=== PATIENT | male | born 1990 | race Caucasian/White ===

== ENCOUNTER 2016-12-19 22:41 | Inpatient (IN) | payer MEDICAID ==
--- NOTE | 2016-12-19 22:57 | EDPHY ---
H & P Stated Complaint: RIGHT SIDE CHEST REDNESS AND SWELLING HX OF CHEST RECONSTRUCTION SURGERY HPI/ROS: HPI CHIEF COMPLAINT: Right-sided chest pain, redness, warmth HISTORY OF PRESENT ILLNESS: This patient is a very pleasant 26 year old transgender male female to male, presents emergency room with tenderness to the right areolar region and right breast with warmth and redness. He tells me this all the signs started approximately an hour ago after got out of the shower. He complains that it is tender and it radiates underneath his axillary and a little bit down his right arm. He is concerned he may have an infection. He had breast augmentation 9 years ago. denies fever. Past Medical History: No significant medical history except for transgender female to male, takes testosterone supplement Past Surgical History: breast augmentation Social History: Denies drug use, alcohol, tobacco works as a massage therapist Family History: Noncontributory ROS REVIEW OF SYSTEMS: A comprehensive 10 point review of systems is otherwise negative aside from elements mentioned in the history of present illness. Exam Constitutional triage nursing summary reviewed, vital signs reviewed, awake/ alert. Eyes normal conjunctivae and sclera, EOMI, PERRLA. HENT normal inspection, atraumatic, moist mucus membranes, no epistaxis, neck supple/ no meningismus, no raccoon eyes. Respiratory clear to auscultation bilaterally, normal breath sounds, no respiratory distress, no wheezing. Cardiovascular chest wall: Right chest wall there is erythema present the Abdifatah a of the right breast appear swollen and tender there is cellulitis present, minimal, no abscess no fluctuance no crepitus, minimally tender, no reactive lymphadenopathy at this time, rate normal, regular rhythm, no murmur, no edema, distal pulses normal. Gastrointestinal soft, non-tender, no rebound, no guarding, normal bowel sounds, no distension, no pulsatile mass. Genitourinary no CVA tenderness. Musculoskeletal no midline vertebral tenderness, full range of motion, no calf swelling, no tenderness of extremities, no meningismus, good pulses, neurovascularly intact. Skin pink, warm, & dry, no rash, skin atraumatic. Neurologic awake, alert and oriented x 3, AAOx3, moves all 4 extremities equally, motor intact, sensory intact, CN II-XII intact, normal cerebellar, normal vision, normal speech. Psychiatric normal mood/affect. Heme/Lymph/Immune no lymphadenopathy. Differential Diagnosis: This patient will have an IV established will obtain blood work will obtain blood cultures, patient be given a dose of vancomycin will check ESR CRP white count electrolytes. Medical Decision Making: Includes but is not limited to in a particular order, right chest breast abscess, right chest breath cellulitis, chest wall cellulitis Re-evaluation: 0124: I did re-evaluate this patient this time I have outlined his large area of redness and cellulitis of his right chest and Areola/nipple. There is no crepitus on exam however is exquisitely tender, warm, and he has tenderness palpation axillary lymphadenopathy. His blood work is reassuring I did give him a dose of IV vancomycin here blood cultures have been pulled. I am going to admit to the Hospalist overnight for right chest wall cellulitis. Reason for admission is large area of cellulitis outlined on the chest, also how quickly this erupted and spread. At this time is hemodynamically stable no evidence of sepsis. 0200: I did update this patient he understands he will be admitted to the hospital. I have ordered this patient IV vancomycin. I spoke with the hospitalist service Dr. Hussein who accepts hospital admission. Ultrasound of the Right chest. The results of the study are negative for fluid collection or large abscess I discussed the results of this study with the radiologist Dr. Rich Source: Patient - Personal History Current Tetanus/Diphtheria Vaccine: Yes Current Tetanus Diphtheria and Acellular Pertussis (TDAP): Yes - Medical/Surgical History Hx Asthma: Yes Hx Chronic Respiratory Disease: No Hx Diabetes: No Hx Cardiac Disease: No Hx Renal Disease: No Hx Cirrhosis: No Hx Alcoholism: No Hx HIV/AIDS: No Hx Splenectomy or Spleen Trauma: No Other PMH: 1.CONCUSSION. 2.HIGH CHOL. 3. TRANSGENDER. 4. TOTAL HYSTERECTOMY - Social History Smoking Status: Never smoked Constitutional: Initial Vital Signs Temperature (C) 37.3 C 12/19/16 22:44 Heart Rate 82 12/19/16 22:44 Respiratory Rate 18 12/19/16 22:44 Blood Pressure 133/72 H 12/19/16 22:44 O2 Sat (%) 99 12/19/16 22:44 O2 Delivery Mode Room Air Allergies/Adverse Reactions: amoxicillin Allergy (Verified 12/19/16 22:46) Penicillins Allergy (Verified 12/19/16 22:46) Home Medications: Medication Instructions Recorded Albuterol 08/16/16 Kava Root Extract 08/16/16 TESTOSTERONE 08/16/16 Medical Decision Making - Data Points Laboratory Results: Laboratory Results 12/19/16 23:15 12/19/16 23:15 12/19/16 23:15 WBC 11.58 H 10^3/uL (3.80-9.50) RBC 5.48 10^6/uL (4.40-6.38) Hgb 16.1 g/dL (13.7-17.5) Hct 47.4 % (40.0-51.0) MCV 86.5 fL (81.5-99.8) MCH 29.4 pg (27.9-34.1) MCHC 34.0 g/dL (32.4-36.7) RDW 13.4 % (11.5-15.2) Plt Count 234 10^3/uL (150-400) MPV 9.3 fL (8.7-11.7) Neut % (Auto) 73.6 % (39.3-74.2) Lymph % (Auto) 17.2 % (15.0-45.0) Eddy % (Auto) 8.1 % (4.5-13.0) Eos % (Auto) 0.3 L % (0.6-7.6) Baso % (Auto) 0.5 % (0.3-1.7) Nucleat RBC Rel Count 0.0 % (0.0-0.2) Absolute Neuts (auto) 8.52 H 10^3/uL (1.70-6.50) Absolute Lymphs (auto) 1.99 10^3/uL (1.00-3.00) Absolute Monos (auto) 0.94 H 10^3/uL (0.30-0.80) Absolute Eos (auto) 0.04 10^3/uL (0.03-0.40) Absolute Basos (auto) 0.06 10^3/uL (0.02-0.10) Absolute Nucleated RBC 0.00 10^3/uL (0-0.01) Immature Gran % 0.3 % (0.0-1.1) Immature Gran # 0.03 10^3/uL (0.00-0.10) ESR 1 MM/HR (0-15) Sodium 140 mEq/L (134-144) Potassium 3.9 mEq/L (3.5-5.2) Chloride 101 mEq/L (97-110) Carbon Dioxide 27 mEq/l (22-31) Anion Gap 12 mEq/L (8-16) BUN 17 mg/dL (7-23) Creatinine 1.0 mg/dL (0.7-1.3) Estimated GFR > 60 Glucose 96 mg/dL (70-100) Calcium 9.6 mg/dL (8.5-10.4) C-Reactive Protein 6.4 mg/L (<10.0) Medications Given: Discontinued Medications Sodium Chloride (Ns) 1,000 mls @ 0 mls/hr IV ONCE ONE PRN Reason: Wide Open Stop: 12/19/16 23:04 Last Admin: 12/19/16 23:20 Dose: 1,000 mls Vancomycin/Sodium Chloride (Vancomycin 1 Gm (Premix)) 250 mls @ 250 mls/hr IV EDNOW ONE PRN Reason: Protocol Stop: 12/20/16 00:02 Last Admin: 12/19/16 23:40 Dose: 250 mls Departure - Departure Disposition: [facility] Inpatient Acute Clinical Impression: Cellulitis of chest wall, Cellulitis of breast Condition: Fair Referrals: IN STATE,. [Primary Care Provider] - As per Instructions
[2016-12-19] MEDS ORDERED: VANCOMYCIN HCL/NORMAL SALINE 250 ML IV ONE (23:03)
[2016-12-19] MEDS ORDERED: NS 1,000 ML IV ONE (23:03)
[2016-12-19 23:23] LABS: % IMMATURE GRANULYOCYTES 0.3 % (0.0-1.1); ABSOLUTE IMMATURE GRANULOCYTES 0.03 10^3/uL (0.00-0.10); ADD DIFF? NO; ADD MORPH? NO; ADD SCAN? NO; ATYPICAL LYMPHOCYTE FLAG 0 (0-99); FRAGMENT RBC FLAG 0 (0-99); HEMATOCRIT 47.4 % (40.0-51.0); HEMOGLOBIN 16.1 g/dL (13.7-17.5); LEFT SHIFT FLG 0 (0-99); LIPEMIA HEMOLYSIS FLAG 90 (0-99); MEAN CELL HEMOGLOBIN 29.4 pg (27.9-34.1); MEAN CELL VOLUME 86.5 fL (81.5-99.8); MEAN PLATELET VOLUME 9.3 fL (8.7-11.7); PLATELET CLUMPS FLAG 0 (0-99); PLATELET COUNT 234 10^3/uL (150-400); RED BLOOD CELL COUNT 5.48 10^6/uL (4.40-6.38); RED CELL DISTRIBUTION WIDTH 13.4 % (11.5-15.2)
[2016-12-19 23:33] LABS: SEDIMENTATION RATE 1 MM/HR (0-15)
[2016-12-19 23:37] LABS: ANION GAP 12 mEq/L (8-16); C-REACTIVE PROTEIN 6.4 mg/L (<10.0); CALCIUM 9.6 mg/dL (8.5-10.4); CARBON DIOXIDE 27 mEq/l (22-31); CHLORIDE 101 mEq/L (97-110); GLOMERULAR FILTRATION RATE > 60; GLUCOSE 96 mg/dL (70-100); POTASSIUM 3.9 mEq/L (3.5-5.2); SODIUM 140 mEq/L (134-144)
[2016-12-20] MEDS ORDERED: HYDROCODONE/APAP 5/325 TAB PO PRN (02:08)
[2016-12-20] MEDS ORDERED: ONDANSETRON DISINTEGRATING 4 MG TAB PO PRN (02:08)
[2016-12-20] MEDS ORDERED: ACETAMINOPHEN 325 MG TAB PO PRN (02:08)
[2016-12-20] MEDS ORDERED: ONDANSETRON 4 MG/2 ML VIAL IVP PRN (02:08)
[2016-12-20 02:46] VITALS: O2SAT 94
--- NOTE | 2016-12-20 02:46 | GHP ---
[f rep st] HISTORY AND PHYSICAL DATE OF ADMISSION: 12/20/2016 CHIEF COMPLAINT: Right-sided breast discomfort and erythema. HISTORY OF PRESENT ILLNESS: This is a 26-year-old transgender female to male who presents to the [facility] with sudden onset of right areolar pain and erythema noted approximately 9 p.m. the evening of presentation after getting out of the shower. Patient reports being at a march today and being in his normal state of health. No subjective fevers, chills. Did feel a bit trampled per his report by the end of january but no specific tenderness to the right side of the chest or arm. Got in the shower this evening and when getting out, noted some erythema and swelling of the right remnant breast tissue. Patient describes being able to express some exudate near the swollen area, then deve loped some discomfort of the right arm with movement and right armpit and therefore, presented to the emergency department. Patient had breast surgery 9 years ago and has not had any complications sinc e that time. Does not report any recent trauma. No new tattoos or piercings to that side of the bod y. PAST MEDICAL HISTORY: Transgender female to male, on testosterone supplementation. SOCIAL HISTORY: Negative for tobacco, alcohol. Does use marijuana occasionally. FAMILY HISTORY: COPD in grandmother. REVIEW OF SYSTEMS: A 10-point review of systems is negative with the exception of that reported in t he HPI. ADVANCED DIRECTIVES: Patient is full cor, full tube. PHYSICAL EXAMINATION: VITAL SIGNS: Blood pressure 118/60, heart rate 78, respiratory rate 18, 95% o n room air, 36.9. GENERAL: This is a healthy-appearing young male in no acute distress. HEENT: No table for moist mucous membranes. Eye exam is negative for any icterus. CARDIAC: Patient is regula r rate and rhythm. PULMONARY: Good respiratory effort. Clear to auscultation bilaterally. GASTROI NTESTINAL: Positive bowel sounds. Abdomen is soft and nontender in all 4 quadrants. MUSCULOSKELETA L: No lower extremity edema. SKIN: There is erythema and swelling in the periareolar area of the r ight breast. It does appear that there is some discharge near the nipple although none can specifica lly be expressed on my examination. Patient is tender on passive range of motion of the right arm. No clear axillary lymphadenopathy is appreciated on that outside. PSYCHIATRIC: Patient is pleasant and cooperative on interview and examination. NEUROLOGIC: Patient is alert and oriented x3. DATA: Telemetry, which I personally reviewed and interpreted, shows sinus rhythm. LABORATORY DATA: White count 11.5, hematocrit 47.4, platelets of 234, creatinine 1.0. Ultrasound of the right chest is reportedly negative for abscess. ASSESSMENT AND PLAN: This is a 26-year-old transgender female to male presenting with right chest wa ll and breast discomfort. 1. Acute right breast cellulitis. Ultrasound imaging is negative for any underlying abscess. Patie nt describes being able to express purulent material. Will initiate IV vancomycin for this reason as well as anti-inflammatories and follow patient's clinical course overnight. If improving, can consi burke transition to oral antibiotics as early as tomorrow. Will be certainly dependent on patient's cl inical progress. 2. Acute leukocytosis secondary to cellulitis. Follow patient's response on antibiotics. Blood cul tures have been obtained from the emergency department. Can follow. 3. Prophylaxis with Lovenox. DIET: Regular. DISPOSITION: Expecting greater than 2 midnights as the patient is quite uncomfortable with marked er ythema of the chest. Suspect this will require more than 1 day of IV antibiotics for improvement. I have discussed the case with the emergency room physician. Patient will be triaged to the medical-s urgical floor for care. /[id number]/MODL
[2016-12-20] MEDS: IBUPROFEN 200 MG TAB PO PRN ×3 (03:12→13:48)
[2016-12-20 05:08] LABS: % IMMATURE GRANULYOCYTES 0.3 % (0.0-1.1); ABSOLUTE IMMATURE GRANULOCYTES 0.03 10^3/uL (0.00-0.10); ADD DIFF? NO; ADD MORPH? NO; ADD SCAN? NO; ATYPICAL LYMPHOCYTE FLAG 0 (0-99); FRAGMENT RBC FLAG 0 (0-99); HEMATOCRIT 44.4 % (40.0-51.0); HEMOGLOBIN 14.9 g/dL (13.7-17.5); LEFT SHIFT FLG 0 (0-99); LIPEMIA HEMOLYSIS FLAG 80 (0-99); MEAN CELL HEMOGLOBIN 29.2 pg (27.9-34.1); MEAN CELL HEMOGLOBIN CONCENTR. 33.6 g/dL (32.4-36.7); MEAN CELL VOLUME 86.9 fL (81.5-99.8); MEAN PLATELET VOLUME 9.8 fL (8.7-11.7); PLATELET CLUMPS FLAG 0 (0-99); PLATELET COUNT 212 10^3/uL (150-400); RED BLOOD CELL COUNT 5.11 10^6/uL (4.40-6.38); RED CELL DISTRIBUTION WIDTH 13.5 % (11.5-15.2)
[2016-12-20 05:24] LABS: ANION GAP 11 mEq/L (8-16); CALCIUM 9.1 mg/dL (8.5-10.4); CARBON DIOXIDE 25 mEq/l (22-31); CHLORIDE 107 mEq/L (97-110); CREATININE 0.9 mg/dL (0.7-1.3); GLOMERULAR FILTRATION RATE > 60; GLUCOSE 93 mg/dL (70-100); POTASSIUM 3.9 mEq/L (3.5-5.2); SODIUM 143 mEq/L (134-144)
[2016-12-20 08:24] VITALS: BP 121/67; PULSE 62; RESP 18; TEMP 97.6
[2016-12-20] MEDS ORDERED: ENOXAPARIN 40 MG/0.4 ML SYR SC SCH (09:00)
[2016-12-20] MEDS ORDERED: VANCOMYCIN HCL/NORMAL SALINE 250 ML IV SCH (11:30)
--- NOTE | 2016-12-20 11:43 | US ---
Ultrasound examination of the right breast, December 20, 2016 HISTORY: Right chest redness and tenderness. Evaluate for abscess. TECHNIQUE: Sonographic evaluation of the periareolar right breast was performed with a high-resolutio n linear transducer. FINDINGS: Normal-appearing breast tissue and subcutaneous tissue is identified, without evidence of a bscess or mass. IMPRESSION: 1. Negative right breast sonogram. Results called to Dr. Wang at 1:55 AM.
--- NOTE | 2016-12-20 22:48 | PDDCSUM ---
Discharge Summary Discharge Summary: DC'd pt to home w/ po antibiotics, instructed him to FU w/ PCP as an outpt.
== END 2016-12-20 14:24 | disposition home or self-care (01) | DRG 601 ==
LOC: OBSVTOIN 12-20 02:08 → F1N 12-20 02:28
PROVIDERS: ADMIT Hospitalist; ATTEND Hospitalist
DX: N61.0 Mastitis without abscess (principal)
CPT/HCPCS: 96365; J1650; J3370